=== PATIENT | female | born 1990 | race Hispanic/Latino ===

== ENCOUNTER 2017-06-27 07:10 | Inpatient (IN) | payer MEDICAID ==
[~2017-06-27] VITALS: Ht 148.8 cm; Wt 88.9 kg
[2017-06-27] MEDS ORDERED: Lactated Ringer's 1,000 ML IV PRN (07:34)
[2017-06-27] MEDS ORDERED: Oxytocin 30 Units/500 mL LR 30 UNITS in IV Premix 1 EACH IV PRN ×2 (07:35→11:10)
[2017-06-27] MEDS ORDERED: Methylergonovine 0.2 mg/mL Inj IM PRN ×2 (07:35→11:10)
[2017-06-27] MEDS ORDERED: fentaNYL-PF 50 mCg/mL 2 mL Inj IVPUSH PRN (07:35)
[2017-06-27] MEDS ORDERED: Carboprost 250 mCg/mL Inj IM PRN ×2 (07:35→11:10)
[2017-06-27] MEDS ORDERED: Oxytocin 10 Unit/mL Inj IM PRN ×2 (07:35→11:10)
[2017-06-27] MEDS ORDERED: Hemorrhage Kit, Post Partum XX ONE ×2 (07:35→11:10)
[2017-06-27] MEDS ORDERED: Sodium Chloride LOK Flush 10 mL Syringe IVFLUSH PRN (07:35)
[2017-06-27 08:29] LABS: Mean Corpuscular Hemoglobin 28.4 pg (27.0-35.0); Mean Corpuscular Volume 85.7 fL (81-100)
[2017-06-27] MEDS ORDERED: Penicillin G K 5,000,000 Units Inj ONE (08:31)
[2017-06-27] MEDS ORDERED: Dextrose 5% Minibag Plus 100 ML IV ONE (08:31)
[2017-06-27] MEDS ORDERED: SODIUM CHLORIDE 0.9% IV ONE (08:50)
[2017-06-27] MEDS ORDERED: PENICILLIN K IV ONE (08:50)
[2017-06-27] MEDS ORDERED: Lactated Ringer's 1,000 ML IV SCH (11:09)
[2017-06-27] MEDS ORDERED: LANOlin HPA 7 Gm Ointment TOPICAL PRN (11:10)
[2017-06-27] MEDS ORDERED: Benzocaine (Dermoplast) 20% 60 Gm Spray TOPICAL PRN (11:10)
[2017-06-27] MEDS ORDERED: Witch Hazel-Glycerin Pads TOPICAL PRN (11:10)
[2017-06-27] MEDS ORDERED: HYDROcodone-APAP 5-325 mg Tablet PO PRN (11:10)
--- NOTE | 2017-06-27 11:23 | PCM.HPOB ---
Subjective Date of Service: Jun 27, 2017 Referring Provider: Admitting Physician: Ana Fagan MD Primary Care Physician: Ana Fagan MD Attending Physician: Ana Fagan MD Chief Complaint active contractions since 4 AM History of Present History of Present Illness 26 years female, at 38 wk 4 d gestational age based on LMP, concordant with a 23 wk u/s, reported active contractions since 4 AM today. She was dilated to 4 cm at the time of admission at 7:15 AM. GBS positive status. care at [facility]; inadequate visits due to lack of transportation; doing well otherwise. Labs: O+; rubella imm; antibody screen neg; HIV neg; HBsAg neg; RPR nonreactive; GC/jCT neg; missed the window for Quad screen; normal 1 hr GTT; GBS positive. Varicella non-immune status. OB History: (2), Para (1) Allergy Coded Allergies: No Known Allergies (Unverified , 06/27/17) Exam Vital Signs normal; Exam category 1 tracing. Constitutional: Well-developed, Well-nourished HEENT: Atraumatic Lungs: Clear to Auscultation Heart: Exam Unremarkable Abdomen: Gravid Labs/Diagnostics Labs Hgb=12.1; [id number] Maternal Blood Type: O Antibody Screen: negative Group B Strep Results: Positive Previous with GBS: Unknown Rubella: Immune OB Intrapartum Assessment/Plan Assessment admitted for active labor at 38 wk 4 d gestational age; penicillin for GBS positive status; OK to have epidural anesthesia for pain control; anticipate normal vaginal delivery. Varicella nonimmune status. Ana Fagan MD Jun 27, 2017 11:23
--- NOTE | 2017-06-27 11:32 | PCM.OBVAG ---
Vaginal Delivery Date of Service Jun 27, 2017 Pre Operative Diagnosis Pre Operative Diagnosis active labor at term Post Operative Diagnosis Post Operative Diagnosis Normal vaginal delivery at term Procedure Procedure: spontaneous rupture of membrane ~9:30 AM, meconium present; dilation was complete 10:25 AM; normal vaginal delivery at 10:53 AM; head position: LISA; nuchal cord x1, reduced without difficulty; the was placed on mother's chest immediately after the ; the baby boy cried vigorously; cord clamping was delayed for 1 min; apg=8/9; en=6611 g; placenta delivered without difficulty, intact, with 3-v cord. Estimated blood loss: 350 ml. Perineum was intact, no tear. Sponge count correct; sharps disposed appropriately. No epidural anesthesia or any pain medications prior to the delivery. Received 1 dose of penicillin for pos GBS status prior to delivery. Obstetical Procedure: Normal Spontaneous Vaginal Delivery Ibm Mainframe Developer/Tumbler Operator Provider and Tumbler Operator: Dr. Fagan and nursing staff were present for the delivery; Dr. Carter was present for the due to meconium positive status. Indication for Procedure Induction: Active labor Findings Obstetrical Findings: [place] (Male), Cord (3 Vessel), Weight (3589 grams), Presentation (LISA), 1 minute (8), 5 minutes (9), Placenta ( Intact/Normal), Perineal Laceration Blood Loss & Administration Estimated Blood Loss: 350 Blood Admin during procedure: No Post Procedure Plan Post delivery Condition: Mom stable, Baby stable to nursery Ana Fagan MD Jun 27, 2017 11:32
[2017-06-27] MEDS: Penicillin G K Inj 3,000,000 UNITS in IV Premix 50 EACH IV SCH (12:30)
[2017-06-28 06:30] LABS: Mean Corpuscular Hemoglobin 28.3 pg (27.0-35.0); Mean Corpuscular Volume 86.8 fL (81-100)
[2017-06-28] MEDS: Penicillin G K Inj 3,000,000 UNITS in IV Premix 50 EACH IV SCH ×3 (08:30→16:30)
--- NOTE | 2017-06-28 21:45 | PCM.PNOBPP ---
Subjective Date of Service Jun 28, 2017 Post : Spontaneous Vaginal Delivery Subjective mild, tolerated pelvic pain when breast feeding only. Lochia: Normal Pain Management: PO pain meds Gastrointestinal: Good Appetite Postop Activity: Ambulating Independently Blood Type: O RH Type: Positive Labs Laboratory Tests 06/28/17 06:17: White Blood Count 11.9, Red Blood Count 3.85, Hemoglobin 10.9, Hematocrit 33.4, Mean Corpuscular Volume 86.8, Mean Corpuscular Hemoglobin 28.3, Mean Corpuscular Hemoglobin Concent 32.6, Red Cell Distribution Width 15.5, Platelet Count 157 Exam Vital Signs Vital Signs: VS reviewed, stable Exam Abdomen: Uterus is, Fundus firm Extremities: No cords Lungs: Clear to Auscultation Heart: Exam Unremarkable, Regular Rate/Rhythm, Normal S1, Normal S2, No Murmurs /Rubs/Gallops General: Alert, Oriented X3, Cooperative, No Acute Distress OB Post Assessment/Plan Assessment doing well on day1; Varicella non-immune. Pain Management: continue routine care. Pain Evaluation: Adequate Pain Control Ana Fagan MD Jun 28, 2017 21:45
--- NOTE | 2017-06-29 10:54 | PCM.DC.OB ---
Obstetrical Discharge Summary Date of Service Jun 29, 2017 Date of hospital admission Jun 27, 2017 at 07:27 Date of Discharge: Jun 29, 2017 Providers Admitting Physician: Ana Fagan MD Primary Care Physician: Ana Fagan MD Attending Physician: Ana Fagan MD Diagnosis at Time of Discharge Normal vaginal delivery at term; GBS positive; Varicella non-immune. Problems: Brief History and Physical: 26 years female, at 38 wk 4 d gestational age based on LMP, concordant with a 23 wk u/s, reported active contractions since 4 AM today. She was dilated to 4 cm at the time of admission at 7:15 AM. GBS positive status. care at [facility]; inadequate visits due to lack of transportation; doing well otherwise. Labs: O+; rubella imm; antibody screen neg; HIV neg; HBsAg neg; RPR nonreactive; GC/jCT neg; missed the window for Quad screen; normal 1 hr GTT; GBS positive. Varicella non-immune status. Hospital Course: normal vaginal delivery at term on 06/27/17, and did well since, ready to go home today. Discharge Medications: Colace 100 mg bid prn constipation; Ibuprofen 600 mg q 6 hr prn pain. Disposition discharged to home Follow-up plan follow up at [facility] to see Dr. Fagan for check in 4 to 6 wk, sooner as needed. Discharge Diet: Heart Healthy Discharge Activity-General: Pelvic Rest for 6 weeks Ana Fagan MD Jun 29, 2017 10:54
--- NOTE | 2017-06-29 10:59 | PCM.DIOB ---
Obstetrical Disch Instruction Date of Service: Jun 29, 2017 Dates of Hospitalization Date of Hospital Admission Jun 27, 2017 at 07:27 Providers Admitting Physician: Ana Fagan MD Primary Care Physician: Ana Fagan MD Attending Physician: Ana Fagan MD Discharge Diagnosis Discharge Diagnosis term normal vaginal delivery; GBS positive status, received one dose of penicillin; Varicella non-immune. Problems: Diet Discharge Diet: Heart Healthy Activity Discharge Activity-General: Pelvic Rest for 6 weeks Dressing and Incisional Care Hygiene: May shower Follow Up Plan Follow Up Plan follow up at [facility] to see Dr. Fagan for check in 4 to 6 wk, sooner as needed. Follow-up appointment: Weeks (4-6 wk) Call your provider for: Fever or Chills, Shortness of breath, Heavy vaginal bleeding, Heavy bleeding, Epigastric pain, Excessive constipation, Vaginal discomfort, Red painful breasts Ana Fagan MD Jun 29, 2017 10:59
[2017-06-29] MEDS ORDERED: IBUP-1827 PO (11:02)
[2017-06-29] MEDS ORDERED: DOCU-41 PO (11:02)
[2017-06-29 11:32] VITALS: BP 120/71; PULSE 85; RESP 16
== END 2017-06-29 13:25 | disposition home or self-care (01) | DRG 775 ==
LOC: FBCO 07:10 → FBC 07:27
PROVIDERS: ADMIT Family Medicine; ATTEND Family Medicine
PROC: 10E0XZZ Delivery of Products of Conception, External Approach (ICD-10-PCS; principal; 2017-06-27)
DX: O69.81X0 Labor and delivery complicated by cord around neck, without compression, not applicable or unspecified (principal); O99.824 Streptococcus B carrier state complicating childbirth; O77.0 Labor and delivery complicated by meconium in amniotic fluid; Z3A.38 38 weeks gestation of pregnancy; Z37.0 Single live birth